=== PATIENT | male | born 1955 | race Caucasian/White ===

== ENCOUNTER 2017-01-07 01:41 | Day surgery (SDC) | payer MEDICARE ==
[~2017-01-07] VITALS: Ht 180.3 cm; Wt 95.5 kg
[2017-01-07] VITALS (16 sets, daily range): BP systolic 109–142; BP diastolic 40–77; PULSE 56–78; RESP 16–22; O2SAT 93–98
[~2017-01-07 01:41] MED LIST: AMLO10TA3 PO; ASPI-973 PO; BENZ200C44 PO; CELE200C PO; CYCL10TA9 PO; GUAI473S22 PO; HYDR-4003 PO; HYDR25TA4 PO; LISI10TA PO; NITR0.4T SL; NPR500T PO; OMEP40CA36 PO; PRAV40TA PO; TOP100 PO
[2017-01-07] MEDS ORDERED: 0.9% Sodium Chloride 1,000 ML ONE ×2 (08:41→11:09)
[2017-01-07] MEDS ORDERED: 0.9% Sodium Chloride 1,000 ML IV ONE (09:12)
--- NOTE | 2017-01-07 10:30 | NUR ---
[facility] ADMIT 61 YR OLD MALE ADMITTED TO [facility] FOR HEART CATH TODAY AT 0930. IVS STARTED, QUESTIONS ANSWERED, CONSENT IS SIGNED, AND MED REC COMPLETED. LABS FROM 01/03/17 ON CHART.
[2017-01-07] MEDS ORDERED: CLOP75TA3 PO (10:34)
[2017-01-07] MEDS ORDERED: Heparin 1,000 Units/500 mL NS Premix IV ONE ×2 (11:01→11:06)
[2017-01-07] MEDS ORDERED: Heparin 1,000 Unit/mL 10 mL Inj ONE (11:01)
[2017-01-07] MEDS ORDERED: Nitroglycerin 50,000 mcg/250 mL D5W Premix IV ONE (11:01)
[2017-01-07] MEDS ORDERED: fentaNYL-PF 50 mCg/mL 2 mL Inj ONE (11:02)
--- NOTE | 2017-01-07 12:06 | DI95 ---
[address] [address] INTERVENTIONAL CARDIAC CATHETERIZATION PATIENT: HEAVEN LEONARDO : 1955 MR#: [id number] ADMIT: 01/07/2017 JOB ID: [id number] PROCEDURE: 1. Selective right and left coronary angiography. 2. Left heart catheterization. 3. Percutaneous intervention on the right coronary artery. INDICATION: Abnormal stress test. Recurrent chest pain. PROCEDURAL DETAILS: The reader is referred to the procedure log for complete details. Briefly, it was done via right femoral approach using a [id number]-[id number] system. The coders are referred to the procedure log for further details. ANGIOGRAPHIC FINDINGS: 1. Left main short. 2. LAD. No critical disease. Mild diffuse disease of 20% or so is noted in almost the entirety of the LAD beginning from the mid segment all the way to the distal segment. 3. Circumflex is nondominant. In its mid to proximal segment it has about a 30% lesion. The obtuse marginal branches have mild disease of 10% to 20%. 4. Right coronary artery is dominant. In its proximal segment it has an eccentric 70% to 80% lesion. 5. Left heart catheterization revealed an elevated LVEDP of 18. Hand injection revealed normal wall motion. Ejection fraction is greater than 60%. There was no gradient on pullback. INTERVENTIONAL REPORT: We then proceeded ahead with an intervention of the right coronary artery. A Marilin guide was used. A Runthrough wire was used. This was stented with a 3.0 x 23 mm Xience drug-coated stent. Post stenting, there was residual in the midportion of the stent which was tackled with a 3.25 noncompliant balloon at high pressures. Final angiographic results were excellent. The patient is advised to stay on dual antiplatelet therapy for at least six months post procedure.
--- NOTE | 2017-01-07 16:35 | NUR ---
[facility] TRANSFER PT WAS RECEIVED FROM SUSTAINABLE LANDSCAPE ARCHITECT AT 1200. RIGHT GROIN WITH STAR CLOSE HAS REMAINED SOFT, NON TENDER, WITH SLIGHT OOZE NOTED. POST PCI EKG WAS DONE. MONITOR SHOWS SR/SB. PT COMPLETED BEDREST AND AMBULATED IN [place] AND VOIDED. DRSG WAS CHANGED TO RIGHT GROIN. RIGHT DP/PT PER DOPPLER. PT DENIES ANY PAIN AND IS TAKING PO FLUIDS AND TOLERATED MEAL WELL. PT AND HIS NURSING CARE WERE TRANSFERRED TO ROOM 2003 AT 1620. RN TO RN HAND OFF WAS DONE WITH HAYDEN Leigh RN AND REPORT WAS GIVEN.
[2017-01-07] MEDS ORDERED: HYDROcodone-APAP 5-325 mg Tablet PO PRN (16:55)
[2017-01-07] MEDS ORDERED: 0.9% Sodium Chloride 250 ML IV PRN (16:56)
[2017-01-07] MEDS ORDERED: Ondansetron 2 mg/mL 2 mL Inj IVPUSH PRN (17:00)
--- NOTE | 2017-01-07 18:21 | NUR ---
Transfer Patient arrived from [facility] around 1630. A&O, pleasant & cooperative, able to make needs known. ADAMS. Tele SR 75. Lungs diminished throughout. Bowel tones active. Pt ate dinner. Last BM prior to admit. Groin site dressing is clean, dry, and intact. Surrounding skin is soft, non-tender. No hematomas or drainage noted. Pedal pulses weak to palpation. No c/o pain or discomfort at this time. Pt has been ambulating independently around the unit. Saline locked on the L side X2, both flushing well.
[2017-01-07] MEDS: MeTOProlol XL 50 mg ER24 Tablet PO SCH (21:10)
[2017-01-08 03:14] VITALS: BP 124/69; PULSE 52; RESP 18; O2SAT 96
--- NOTE | 2017-01-08 03:37 | NUR ---
Tele/Groin A&O x 3, using call light appropriately, room air,Saline locked x 2, Groin site CDI, 2x2 and Bio-oclusive , no additional drainage, Tele: Roland to SR, anticipating DC Tuesday AM.
[2017-01-08 06:11] VITALS: PULSE 59
[2017-01-08] MEDS: MeTOProlol XL 50 mg ER24 Tablet PO SCH (07:59)
[2017-01-08 08:32] VITALS: BP 122/79; PULSE 61; RESP 16; O2SAT 95
[2017-01-08 09:20] VITALS: PULSE 58
--- NOTE | 2017-01-08 12:17 | NUR ---
Discharge Pt left at 1215 with girlfriend. 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 All discharge instructions gone over and questions answered. Follow up apt made and pt understood. New prescription sent with patient to be filled. New medication list gone over and understood changes made. Vitals stable, A&Ox3, tele and IV removed.
--- NOTE | 2017-01-08 13:26 | DIS ---
[address] [address] DISCHARGE SUMMARY PATIENT: HEAVEN LEONARDO : 1955 MR#: [id number] ADMIT: 01/07/2017 JOB ID: [id number] DIS: 01/08/2017 HOSPITAL COURSE: The patient is a 61-year-old gentleman who was hospitalized recently at [facility] with acute coronary syndrome. He was seen two days ago by Dr. Campos and brought in yesterday for coronary angiography. He was found to have significant disease in his right coronary artery and underwent stenting. The details of his angiogram and angioplasty are contained in Dr. Campos's note. This gentleman has been up ambulating and has felt well. He has had no recurrent anginal discomfort and his vital signs are normal. His right groin looks fine, without hematoma or ecchymosis, and good pedal pulses. I have reviewed all of his medications. He has all of his prescriptions at home, with the exception of a statin drug, and Dr. Campos has already prescribed Lipitor 40 mg a day. I reviewed these medications with the patient and answered his questions. He is ready to go home. He is to be scheduled to see Dr. Campos in the [place] office with us in about four weeks. He is scheduled for February 02, 2017.
[2017-04-08] MEDS ORDERED: LISI-571 PO (16:59)
[2017-04-08] MEDS ORDERED: METO50TA3 PO (16:59)
[2017-04-08] MEDS ORDERED: LIP40 PO (16:59)
== END 2017-01-08 12:15 | disposition home or self-care (01) ==
LOC: SOUO 01:41 → PCC 16:17 → SOUO 01-08 12:15
PROVIDERS: ATTEND Internal Medicine Cardiovascular Disease
DX: I25.10 Atherosclerotic heart disease of native coronary artery without angina pectoris (principal); F17.210 Nicotine dependence, cigarettes, uncomplicated; I10 Essential (primary) hypertension; Z79.82 Long term (current) use of aspirin
CPT/HCPCS: 36415; 80048; 93005; 93458; 99152; 99153; C1725; C1760; C1769; C1874; C1887; C9600; J1200; J1644; J2060; J2250; J3010; J7030; Q9967

== ENCOUNTER 2017-04-11 00:12 | Day surgery (SDC) | payer MEDICARE ==
[~2017-04-11 00:12] MED LIST changes: -BENZ200C44 PO; -CELE200C PO; +CLOP75TA3 PO; -GUAI473S22 PO; +LIP40 PO; +LISI-571 PO; -LISI10TA PO; +METO50TA3 PO; -NPR500T PO; -PRAV40TA PO; -TOP100 PO
[2017-04-11] MEDS ORDERED: 0.9% Sodium Chloride 1,000 ML IV ONE (08:15)
== END 2017-04-11 23:59 | disposition home or self-care (01) ==
LOC: SOUO 00:12
PROVIDERS: ATTEND Internal Medicine Cardiovascular Disease
DX: I73.9 Peripheral vascular disease, unspecified (principal)

== ENCOUNTER 2017-07-17 21:04 | Inpatient (IN) | payer MEDICARE ==
[~2017-07-17] VITALS: Ht 180.3 cm; Wt 93.2 kg
[2017-07-17 20:20] VITALS: BP 149/68; PULSE 65; RESP 20; O2SAT 98
[~2017-07-17 21:04] MED LIST changes: -CYCL10TA9 PO; -HYDR-4003 PO; -OMEP40CA36 PO; +PANT40TA3 PO
[2017-07-17 23:35] VITALS: PULSE 65
[2017-07-17] MEDS ORDERED: DILT120C52 PO (23:46)
[2017-07-17] MEDS ORDERED: APIX5TAB PO (23:46)
[2017-07-18] VITALS (16 sets, daily range): BP systolic 118–149; BP diastolic 54–78; PULSE 57–66; RESP 14–20; O2SAT 93–99
[2017-07-18] MEDS ORDERED: Polyethylene Glycol (PEG) 17 Gm Powder PO PRN (00:35)
[2017-07-18] MEDS ORDERED: Ondansetron 2 mg/mL 2 mL Inj IVPUSH PRN (00:35)
[2017-07-18] MEDS ORDERED: Atropine 1 mg/10 mL (Code) Syringe IVPUSH PRN (00:35)
[2017-07-18] MEDS ORDERED: Alum-Mag Hydrox-Simeth 30 mL Suspension PO PRN (00:35)
[2017-07-18] MEDS ORDERED: Senna-Docusate 8.6-50 mg Tablet PO PRN (00:35)
--- NOTE | 2017-07-18 01:17 | PCM.HPMED ---
Subjective Date of Service Jul 18, 2017 Primary Provider: Admitting Physician: Yael Vigil DO Primary Care Physician: Arden Negro MD Attending Physician: Yael Vigil DO Chief Complaint: Chest discomfort/palpitations History of Present Illness: Yoel Bae is a 62-year-old male with past medical history significant for CT status post RCA drug-eluting stent in December 2016, occluded SFA, hypertension, and tobacco use who presented to [facility] with palpitations and chest discomfort. He was subsequently transferred to our facility due to a reported elevated troponin and possible need for a stress test although in review of his records from [place] troponins seem to be within normal limits. As noted above he does have significant cardiac history and Dr. Campos did attempt percutaneous intervention of the totally occluded SFA but was unsuccessful in May and the patient has been referred to [facility]. The symptoms he experienced today began at approximately 1600 and came on gradually. Patient describes pain as a pressure located in his left chest that does not radiate, worsen with breathing, or palpation. He denied any associated diaphoresis, nausea, vomiting, lightheadedness, or dizziness with the episode. Pain significantly improved with nitroglycerin 2. On presentation to our facility the patient's pain is negligible but he still has his nitroglycerin patch in place. Of note patient was recently hospitalized at [place] approximately 7-10 days ago at which time he was placed on diltiazem and Eliqis. Patient denies history of atrial fibrillation. Initial vitals were temperature 37.5, pulse 65, respiratory rate 20, blood pressure 149/68, saturating 90% on room air. Labs at [place] were largely unremarkable. It does appear that he has some chronic kidney disease. Unclear if there is an acute component as I do not know his last baseline. As mentioned above troponin I 2 at [place] were 0.14 and 0.07. Repeat labs at our facility again show some chronic kidney disease along with an elevated troponin T of 0.056. Review of Systems: Comprehensive review of systems was conducted with the patient and found to be negative except as noted above in HPI. Allergies Coded Allergies: No Known Allergies (Unverified , 01/07/17) Home Medications Eliquis Cartia Amlodipine Clopidogrel Lisinopril Pantoprazole Atorvastatin Hydrochlorothiazide Metoprolol PMH CAD status post stent in December 2016 Vascular disease Hypertension GERD Bilateral rotator cuff injury Surgical History Left shoulder surgery 8 Right shoulder surgery 3 Right knee surgery Family History Father at age of 84 and was healthy to his knowledge. Mother at the age of 98 and was also healthy to his knowledge. Social History Hx Alcohol Use: No Hx Substance Use: No Hx Tobacco Use: Yes Smoking Status: Current Every Day Smoker (half pack per day) Living Arrangement: Alone Exam Vital Signs Vital Sign - Last Date Time Temp Pulse Resp B/P Pulse Ox O2 Delivery O2 Flow Rate FiO2 07/17/17 23:35 65 07/17/17 20:20 37.5 20 149/68 98 Room Air Exam General: No acute distress, well-developed, well-nourished, appropriately interactive HEENT: Normocephalic, atraumatic. External ears without defect. Pupils equal, round, and reactive to light and accommodation. Anicteric sclerae, moist conjunctivae, and no lid lag. Oropharynx free of erythema and cobble stoning with moist mucosa. Neck: Supple with full range of motion. No jugular venous distension. No bruits. No lymphadenopathy or thyromegaly. Cardiovascular: Regular rate and rhythm with no murmurs, rubs, or gallops appreciated Pulmonary: Clear to auscultation bilaterally with no crackles, wheezes, or rhonchi. Normal respiratory effort with no use of accessory muscles. Abdomen: Bowel tones present. Soft, nontender, nondistended. No hepatosplenomegaly or masses appreciated. Extremities: No clubbing, cyanosis, edema, or lymphadenopathy appreciated. Skin: Normal temperature, turgor, and texture; no rash, ulcers, or subcutaneous nodules appreciated. Neurological: Cranial nerves grossly intact. Normal muscle strength, tone, and bulk. Reflexes, coordination, and sensory function within normal limits. No known gait impairment. Psychiatric: Normal mood and affect. Alert and oriented to person, place, and time. Lab and Diagnostics Labs CBC Test 07/18/17 00:54 White Blood Count 8.6th/mm3 (3.8-10.1) Red Blood Count 4.07mil/mm3 (4.40-5.80) Hemoglobin 13.0g/dL (13.8-17.2) Hematocrit 37.7% (41.0-50.0) Mean Corpuscular Volume 92.6fL (81-100) Mean Corpuscular Hemoglobin 31.9pg (27.0-35.0) Mean Corpuscular Hemoglobin Concent 34.5% (32.0-37.0) Red Cell Distribution Width 13.7% (12.3-15.4) Platelet Count 186bil/L (150-400) Neutrophils (%) (Auto) 50.7% (40-74) Lymphocytes (%) (Auto) 35.6% (14-46) Monocytes (%) (Auto) 10.7% (4-12) Eosinophils (%) (Auto) 2.7% (0-5) Basophils (%) (Auto) 0.1% (0-3) CMP Test 07/18/17 00:54 07/18/17 01:09 Sodium Level 140mEq/L Potassium Level 3.7mEq/L Chloride Level 100mEq/L Carbon Dioxide Level 24mmol/L Blood Urea Nitrogen 37mg/dL Creatinine 1.43mg/dL Estimat Glomerular Filtration Rate 53mL/min Glucose Level 105mg/dL Calcium Level 8.8mg/dL Magnesium Level 1.8mg/dL Total Bilirubin 0.2mg/dL Aspartate Amino Transf (AST/SGOT) 24U/L Alanine Aminotransferase (ALT/SGPT) 37U/L Alkaline Phosphatase 69U/L Total Creatine Kinase 100U/L Creatine Kinase MB 1.6ng/mL Creatine Kinase MB % % Troponin T 0.056ug/L Total Protein 6.7g/dL Albumin 3.9g/dL Thyroid Stimulating Hormone (TSH) 2.010uIU/mL Hold Cornejo Top Tube Received Cardiac Echo Impressions Echocardiogram Report Study Date: 02/18/2017 Interpretation Summary Left ventricular wall thickness is at the upper limits of normal. Proximal septal thickening is noted. The ejection fraction is estimated to be 60-65%. There is systolic anterior motion of the mitral valve. There is no significant valvular heart disease. Electronically signed by: Saw Campos on Reading Physician:02/21/2017 08:49 AM Assessment & Plan Yoel Bae is a 62-year-old male with past medical history significant for CT status post RCA drug-eluting stent in December 2016, occluded SFA, hypertension, and tobacco use who presented to [facility] with palpitations and chest discomfort. He was subsequently transferred to our facility due to a reported elevated troponin and possible need for a stress test although in review of his records from [place] troponins seem to be within normal limits. NSTEMI, present on admission, active. - No new ECG findings. Old inferior infarct. - Initial troponin I at [place] 0.14 decreased to 0.07. Troponin T on presentation to [facility] 0.056. Trending troponins 3. - Lipid panel pending. - Supplemental oxygen as needed. - Aspirin 81 mg given at [facility]. - Clopidogrel 75 mg daily. - Sublingual nitroglycerin and morphine as needed. - Beta Bean given at [facility]. - Lisinopril 2.5 mg given and continued daily. - Atorvastatin 40 mg daily. - Heparin drip initiated. - Cardiology consult in am, am team to contact Coronary artery disease status post RCA drug-eluting stent placement in December 2016, present on admission, chronic. - On dual anti-platelet therapy with Clopidogrel and aspirin until last week when [place] switched aspirin to Eliquis. - Clarification needed on appropriate medication regimen. 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 - Continue atorvastatin 40 mg daily. Occluded SFA, present on admission, chronic. - Dr. Campos was unable to stent percutaneously. Referral to [facility]. - Posterior tibialis and dorsalis pedis 2/4 bilaterally in Hypertension, present on admission, chronic. - Home regimen includes: Amlodipine 10 mg daily Lisinopril 5 mg daily Metoprolol tartrate 25 mg BID Possible atrial fibrillation, patient on diltiazem and makes mention of palpitations but is not sure of a diagnosis of atrial fibrillation. - EKG and telemetry reveal NSR. - Home regimen includes diltiazem ER 120 mg daily which has been continued. - Continue to monitor and obtain outside records. PRN Medications - Acetaminophen as needed for mild pain/fever/headache - Bowel regimen as needed - Antiemetic as needed Patient is admitted under inpatient status with expected length of stay greater than 2 midnights due to severity of presenting symptoms, risk of adverse event, and complexity of treatment plan. Pain Evaluation: Adequate Pain Control GI Prophylaxis: Not indicated VTE Prophylaxis: Other (Heparin GTT) VTE Mechanical Devices: Intermittant Pneumatic CD Resuscitation Status: CPR: Attempt Resuscitation Attending Statement The patient was seen and examined together with house staff on 07/17/2017 and I agree with the history, exam and plan as outlined in the note above. ANDRES ROJAS DO Jul 18, 2017 01:17 Yael Vigil DO Jul 18, 2017 04:15
[2017-07-18 01:18] LABS: INR 0.88 ratio
[2017-07-18 01:21] LABS: BASOPHILS % (AUTO) 0.1 % (0-3); EOSINOPHILS % (AUTO) 2.7 % (0-5); MONOCYTES % (AUTO) 10.7 % (4-12); Mean Corpuscular Hemoglobin 31.9 pg (27.0-35.0); Mean Corpuscular Volume 92.6 fL (81-100); NEUTROPHILS % (AUTO) 50.7 % (40-74); Platelet Count 186 bil/L (150-400)
[2017-07-18 01:46] LABS: Magnesium 1.8 mg/dL (1.6-2.6)
[2017-07-18 01:47] LABS: Creatine Kinase 100 U/L (21-232)
[2017-07-18] MEDS ORDERED: Heparin 5,000 Unit/mL Inj IVPUSH PRN (02:05)
[2017-07-18] MEDS ORDERED: Heparin 25K Unit/500mL 0.45 NS 25,000 UNIT in IV Premix 1 EACH IV SCH (02:05)
[2017-07-18] MEDS ORDERED: Heparin 5,000 Unit/mL Inj SUBQ ONE (02:40)
[2017-07-18] MEDS: 0.9% Sodium Chloride 1,000 ML IV SCH ×4 (03:10→20:25)
[2017-07-18 05:19] LABS: APPEARANCE,URINE CLEAR (CLEAR,HAZY); COLOR,URINE YELLOW (YELLOW); OCCULT BLOOD,URINE NEGATIVE (NEGATIVE); UROBILINOGEN,URINE NORMAL (NORMAL)
--- NOTE | 2017-07-18 07:34 | NUR ---
Admit to floor Pt. received from [facility] ED, via EMS. Admitted to Room 2024, self transfer from [facility]. A/O, denies pain or discomfort. MD notified of arrival, orders received. Lab values drawn, and Heparin started. Patient NPO, d/c NTG paste, and on caffeine restrictions for pre-diagnostic prep. Heparin drip started, serial labs ordered. VSS. Tele: SR rate in 60-70'. Report given to on coming RN.
[2017-07-18] MEDS ORDERED: Diltiazem CD 120 mg ER24 Capsule PO SCH ×2 (08:30→21:00)
[2017-07-18] MEDS: Sodium Chloride LOK Flush 10 mL Syringe IVFLUSH SCH ×3 (08:44→20:25)
[2017-07-18] MEDS: Pantoprazole 40 mg ER24 Tablet PO SCH (08:44)
--- NOTE | 2017-07-18 09:09 | NUR ---
Social Work: Initial Assessment D: Per EMR review, pt is a 62 year old male admitted for chest pain. Patient is AARP Medicare Complete HMO, patient is applying for DSHS and has no LTC or VA benefits. PCP is Arden Negro MD. Advanced Directives not complete- Information provided. Readmit score not entered at this time. CRAB STEAMER met with the patient at bedside. Social work/dcp role explained, contact information and discharge planning checklist provided. See initial assessment. Patient lives in [place], alone, in a mobile home with 3 steps to enter. The patient uses a cane for mobility, is I with all ADLs and self-care and continues to drive. No history of HH or Skilled rehab. Patient anticipates discharge home when ready but is receptive to discharge planning if needs arise. Patient states that his s/o will likely transport. He does not have her contact information readily available at this time. Patient has been ambulating to the bathroom during admission. A: Pt who is I at baseline P: Evolving; Patient anticipates discharge home. CRAB STEAMER to continue to follow to assess for discharge needs and coordinate discharge planning as ordered by physician. MARISELA Mahmood Addendum: 07/18/17 at 0914 by CRISTINA CHEN Amended: Links added.
[2017-07-18 09:34] LABS: Creatine Kinase 132 U/L (21-232); TROPONIN T 0.027 ug/L (0.0-0.011)
--- NOTE | 2017-07-18 10:14 | NUR ---
Chest pain Pt had been walking in hallway. Stated after he got back into bed he started to experience chest pain 04/09. MD present. Pt BP 135/78. 0.4mg SL Nitroglycerin administered and EKG ordered. Will continue to monitor.
[2017-07-18] MEDS ORDERED: 0.9% Sodium Chloride 1,000 ML IV ONE (13:30)
[2017-07-18] MEDS ORDERED: Heparin 1,000 Units/500 mL NS Premix IV ONE (14:57)
[2017-07-18] MEDS ORDERED: Heparin 10,000 Unit/1,000 mL NS Premix IV ONE (14:57)
[2017-07-18] MEDS ORDERED: fentaNYL-PF 50 mCg/mL 2 mL Inj ONE ×2 (14:58→15:11)
[2017-07-18] MEDS ORDERED: Nitroglycerin 50,000 mcg/250 mL D5W Premix IV ONE (15:10)
--- NOTE | 2017-07-18 15:13 | NUR ---
Pt off floor to laborer. Premedicated with 324mg chewable aspirin. Report to Kirt MILLAN in [facility].
--- NOTE | 2017-07-18 16:28 | DRSVH ---
PROCEDURE: RADIOPHARMACEUTICAL INJECTION ONLY RADIOPHARMACEUTICAL: 9.5 mCi 99m-Tc sestamibi IV. INDICATIONS: CHEST PAIN. COMPARISON: None. After radiopharmaceutical injection, the study was canceled by the referring physician. No images wer e obtained. Dictated by: Soraida Jeter M.D. on 07/18/2017 at 16:24 Approved by: Soraida Jeter M.D. on 07/18/2017 at 16:26
--- NOTE | 2017-07-18 17:31 | PCM.PROC ---
Procedure Note Date of Service: Jul 18, 2017 Provider and Electric Power Line Examiner: Dr. Joseph Faith Procedure Details: Procedure: Osteopathic Manipulative Treatment Subjective: Patient is a 62-year-old male who is currently complaining of right gluteal and right lower extremity pain. The patient states that the pain is worse with walking and also stretching. The patient states that lying still in bed seems to help improve the pain. The patient describes the pain as a 8 out of 10. Risks and benefits of OMT were explained to the patient and verbal consent obtained. Osteopathic Structural Exam: Lumbars: L2-L4 NRrSl Pelvis: Right anterior innominate Sacrum: Right SI joint compression Upper extremities: Right latissimus dorsi hypertonicity Lower extremities: Right piriformis tender point, right psoas tender point, right abductor hypertonicity Patient responded well to treatment. And stated that his pain had significantly improved and he was able to walk with less pain. Osteopathic treatment modalities used: Myofascial release, Muscle Energy, Cranial, BLT, and soft tissue technique Melba Patel DO Jul 18, 2017 17:30
--- NOTE | 2017-07-18 17:57 | PCM.PNMED ---
Subjective Date of Service Jul 18, 2017 Subjective Patient had an episode of substernal chest pain radiating to his jaw today when he returned to bed after a walk in the [place]. Patient received 2 doses of sublingual nitroglycerin which did not resolve the pain. He then received 1 g of IV morphine and the pain was resolved. EKG did not show any acute ST changes. Exam Vital Signs Vital Sign - Last Date Time Temp Pulse Resp B/P Pulse Ox O2 Delivery O2 Flow Rate FiO2 07/18/17 17:30 59 14 146/54 94 Room Air 07/18/17 12:00 36.5 Intake and Output 07/17/17 07/17/17 07/18/17 Cumulative From/Thru 15:00 23:00 07:00 07/17/17 20:20 - 07/18/17 06:05 Intake Total 0 ml 0 ml Output Total 1050 ml 1050 ml Balance -1050 ml -1050 ml Intake Oral 0 ml 0 ml Output Urine Total 1050 ml 1050 ml # Voids 2 2 Exam General: No acute distress, well-developed, well-nourished, appropriately interactive HEENT: Normocephalic, atraumatic. External ears without defect. Pupils equal, round, and reactive to light and accommodation. Anicteric sclerae, moist conjunctivae, and no lid lag. Oropharynx free of erythema and cobble stoning with moist mucosa. Neck: Supple with full range of motion. No jugular venous distension. No bruits. No lymphadenopathy or thyromegaly. Cardiovascular: Regular rate and rhythm with II/ systolic murmur, no rubs, or gallops appreciated Pulmonary: Clear to auscultation bilaterally with no crackles, wheezes, or rhonchi. Normal respiratory effort with no use of accessory muscles. Abdomen: Bowel tones present. Soft, nontender, nondistended. No hepatosplenomegaly or masses appreciated. Extremities: Tenderness to palpation of right hip and gluteal area. No clubbing , cyanosis, edema, or lymphadenopathy appreciated. Skin: Normal temperature, turgor, and texture; no rash, ulcers, or subcutaneous nodules appreciated. Neurological: Cranial nerves grossly intact. Normal muscle strength, tone, and bulk. Reflexes, coordination, and sensory function within normal limits. No known gait impairment. Psychiatric: Normal mood and affect. Alert and oriented to person, place, and time. IVs and Medications Medications Reviewed: Medications were reviewed in detail Lab and Diagnostics Troponin down to .024 from 0.056 on admission Result Diagram: 07/18/17 0054 07/18/17 0054 12-lead ECG EKG performed 07/18/2017 during the episode of chest pain showed a normal sinus rhythm with a rate of [address] changes. Cardiac Echo Impressions Echocardiogram Report Study Date: 02/18/2017 Interpretation Summary Left ventricular wall thickness is at the upper limits of normal. Proximal septal thickening is noted. The ejection fraction is estimated to be 60-65%. There is systolic anterior motion of the mitral valve. There is no significant valvular heart disease. Electronically signed by: Saw Campos on Reading Physician:02/21/2017 08:49 AM Additional Diagnostics Cardiac cath performed 07/18/2017 Per my conversation with Dr. Ferguson: No culprit lesions were identified that would explain the patient's chest pain. Previous stent placed in December remains patent. Dr. Ferguson recommend stopping heparin and ordering an echo for tomorrow. Assessment & Plan Yoel Bae is a 62-year-old male with past medical history significant for STEMI status post RCA drug-eluting stent in December 2016, occluded SFA, hypertension, and tobacco use who presented to [facility] with palpitations and chest discomfort. He was subsequently transferred to our facility due to elevated troponin. NSTEMI, present on admission, stable - No new ECG findings. Old inferior infarct. - Troponin T on presentation to [facility] 0.056. Now 0.024. - Lipid panel pending. - Supplemental oxygen as needed. - Clopidogrel 75 mg daily. - Sublingual nitroglycerin and morphine as needed. - Beta Bean given at [place]. - Lisinopril 2.5 mg given and continued daily. - Atorvastatin 40 mg daily - Cath 07/18/2017 showed no focal stenoses - Discontinued heparin drip - Echo ordered for a.m. Coronary artery disease status post RCA drug-eluting stent placement in December 2016, present on admission, chronic. - Stent is still patent as identified by cath 07/18/2017 - On dual anti-platelet therapy with Clopidogrel Eliquis. 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 - Continue atorvastatin 40 mg daily. Occluded SFA, present on admission, chronic. - Dr. Campos was unable to stent percutaneously. Referral to [facility]. - Posterior tibialis and dorsalis pedis 2/4 bilaterally Hypertension, present on admission, chronic. - Home regimen includes: Amlodipine 10 mg daily Lisinopril 5 mg daily Metoprolol tartrate 25 mg BID Possible atrial fibrillation, patient on diltiazem and makes mention of palpitations but is not sure of a diagnosis of atrial fibrillation. - EKG and telemetry reveal NSR. - Home regimen includes diltiazem ER 120 mg daily which has been continued. - Continue to monitor and obtain outside records. PRN Medications - Acetaminophen as needed for mild pain/fever/headache - Bowel regimen as needed - Antiemetic as needed Disposition: Patient is currently doing well but still having chest pain with exertion. Patient's cardiac cath went well today and the patient will be restarted on Eliquis and plavix and follow up in the morning. The patient will have an ECHO in the morning as recommended by Dr. Ferguson and if this is negative the patient will be able to be discharged home tomorrow. GI Prophylaxis: Not indicated VTE Prophylaxis: Other (Heparin GTT) VTE Mechanical Devices: Intermittant Pneumatic CD Resuscitation Status: CPR: Attempt Resuscitation Attending Statement The patient was seen and examined together with Dr. Faith on 07/18/17 and I have added additional information to the note above. Gonzales Faith DO Jul 18, 2017 17:57 Melba Patel DO Jul 19, 2017 13:53
--- NOTE | 2017-07-18 18:25 | NUR ---
Pt transferred to [facility] room 2024, VSS, Rt groin site CDI with no bleeding/hematoma noted. Report and pt handoff given to Kandice MILLAN.
--- NOTE | 2017-07-18 18:46 | CS94 ---
[address] [address] DIAGNOSTIC CARDIAC CATHETERIZATION PATIENT: HEAVEN LEONARDO : 1955 MR#: [id number] ADMIT: 07/17/2017 JOB ID: [id number] SERVICE DATE: 07/18/2017 PROCEDURE NOTE -- CARDIAC CATHETERIZATION LABORATORY: DATE OF PROCEDURE: Tuesday, July 18, 2017. YOUTH DEVELOPMENT PROFESSIONAL: Anthony Ferguson MD. PROCEDURES:: 1. Coronary angiogram--urgent. 2. Left heart catheterization (LHC)--pressure measurement. CLINICAL DETAILS:: This 62-year-old, man presents to the cardiac catheterization laboratory for coronary angiogram when he was transferred here after presenting to an outside emergency department with chest pain. His cardiac history dates to December 2016 when he presented with chest pressure. A stress test was said to be abnormal. He had early catheterization from the outpatient setting. A 70% to 80% proximal RCA lesion was treated with a Xience 3.0 x 23 mm TIFFANY post dilated to 3.25 mm. He did well in the interim until a week ago. At that time, he presented with tachy palpitations and chest discomfort. He reports he was found to be in atrial fibrillation and then started on Eliquis and diltiazem. He has continued to have chest discomfort, some of which is exertional; he had an episode of chest discomfort while ambulating in the hallway this morning. CAD risk factors include ongoing cigarette smoking, hypertension, hyperlipidemia. He has some degree of renal insufficiency with creatinine 1.1 in December 2016; and 1.8 in May 2017; and currently 1.4. He also has peripheral vascular disease with bilateral SFA occlusion and severe bilateral calf claudication at less than one-half block. Percutaneous attempt to open the left SFA was not successful in May 2017; and consideration of surgical therapy is pending. ECG is abnormal with inferolateral T-wave inversions and probable LVH (large R in aVL). No inferior Q-waves. Troponin is elevated, 0.02 but flat on serial measurements. Echocardiogram in January 2017 showed intact LV function with the report of NICOLE. I evaluated him prior to the procedure and discussed the findings, impressions, and management considerations with him. We discussed the recommendation for urgent coronary angiography for definitive diagnosis; and to guide treatment decisions, including medical therapy, PCI; or coronary bypass surgery if needed. We discussed the procedure including possible risks and complications. We discussed bleeding, infection, blood clot; as well as injury to nerve, artery, vein or kidney; and also arrhythmia, drug reaction; or others. We discussed treatment as needed including surgery, pacemaker, transfusion. We discussed more serious complications that are possible including stroke, heart attack, cardiac arrest, and emergency surgery including transfer for coronary bypass surgery. We discussed stents including the necessity for long-term mandatory dual antiplatelet therapy; and increased risks related to his multiple anticoagulants; and the possible need for further interventional procedures with stents. After questions and discussion, he signed informed consent to proceed. He was brought to the catheterization laboratory n.p.o. where he was prepped sterilely and draped. CORONARY ANGIOGRAM:: Arterial access was obtained without difficulty in the right common femoral artery using fluoroscopic localization over the femoral head; with local lidocaine anesthesia; and modified Seldinger technique to insert a 10 cm, 6-Faroese side-arm sheath. Catheters were advanced and exchanged over a 0.035 inch J tipped guidewire. Coronary angiography was accomplished using a 6-Faroese JL-4 diagnostic catheter for the left coronary artery; and using a 6-Faroese JR-4 guide catheter for the right coronary artery. LHC: A 6-Faroese pigtail catheter was advanced across the aortic valve into the left ventricle to measure LV pressures and pullback; and no LV-gram was done. Procedure without difficulty. Patient tolerated procedure well. No complications. A side-arm sheath angiogram shows adequate access in the RFA; but extensive vascular calcification and diffuse mild to moderate narrowing. A closure device was deferred in favor of manual closure. The patient was transferred in stable condition from the catheterization laboratory to the [facility] unit for ongoing care including by the primary hospitalist team. I discussed the procedure, findings, and management considerations with the patient (no family present); and with the hospitalist team. FINDINGS: 1. LMCA: Intact. The left main coronary artery is short. 2. LAD: The LAD is a medium to large-size transapical vessel with one large high diagonal and a 2nd moderate-sized proximal diagonal. There is diffuse atherosclerotic plaquing but no angiographically significant LAD lesions. 3. LCX: Intact. The left circumflex coronary artery is a large vessel with one dominant branching OM from the mid LCX. There is mild to moderate diffuse atherosclerotic plaquing. Maximum 50% in the proximal OM. 4. RCA: Dominant. The RCA is a moderate to large-sized vessel with moderate-sized RPDA and RPLV. The stent is patent in the proximal RCA including mild in-stent narrowing. There is diffuse mild to moderate atherosclerotic plaquing in the RCA. There is one large RV branch with an ostial lesion. 5. LHC: LVED 33 mmHg; and no systolic gradient on pullback across the aortic valve. CONCLUSIONS: 1. Coronary angiogram--patent proximal right coronary artery stent; and diffuse [id number] coronary atherosclerosis. 2. Elevated left ventricular end-diastolic. RECOMMENDATIONS: 1. Comment: There is no severe coronary lesion there would account for his current chest discomfort; or requiring revascularization. I considered FFR of RCA; but the diffuse plaquing is angiographically unimpressive. 2. Reassess anticoagulation regimen--if atrial fibrillation is documented and he requires Eliquis then consider ongoing Plavix without ASA. 3. Post catheterization hydration--continue precatheterization hydration regimen and monitor creatinine. 4. Postcatheterization monitoring for bleeding given increased risk due to anticoagulation. 5. Your plan and Cardiology followup as well to consider causes of his chest discomfort. Note a prior echo reported NICOLE; but the images do not appear to suggest ACM although there may be chordal NICOLE.
--- NOTE | 2017-07-18 20:54 | CONS ---
[address] [address] CONSULTATION REPORT PATIENT: HEAVEN LEONARDO : [birth year] MR#: [id number] ADMIT: 07/17/2017 JOB ID: [id number] CARDIOLOGY CONSULTATION NOTE--INITIAL INPATIENT EVALUATION: DATE OF EVALUATION: Tuesday, July 18, 2017. CONSULTING PHYSICIAN: Cardiology--Anthony Ferguson MD. PROBLEMS: 1. Chest Pain: a. Possible Acute Coronary Syndrome(ACS) b. Chest pain--onset of recurrent chest pain for one week including during atrial fibrillation; and during exertion; and recurrent with ambulation in the hospital. c. Elevated troponin (but downtrending on serial testing). d. ECG--Nonspecific with inferolateral T-wave inversions with possible LVH. 2. Coronary Artery Disease (CAD): a. PCI of Proximal RCA--December 2016; Xience 3.0 x 23 mm TIFFANY (post dilated to 3.25 mm). b. Single-vessel CAD--proximal RCA. 3. Atrial Fibrillation: a. Recent onset--documentation not available to us. b. CHADS score elevated (hypertension; vascular disease). CAD RISK FACTORS:: Cigarette smoking--ongoing 1/2 pack per day of cigarettes. No history of diabetes. History of treated hypertension. History of treated hyperlipidemia. No family history of premature coronary artery disease. OTHER PROBLEMS:: 1. Peripheral Vascular Disease(PVD)--Bilateral lower extremities. a. Bilateral Mid SFA occlusion; and Ostial LSFA occlusion. b. Bilateral severe calf claudication (less than 1/2 block; but no rest pain). c. TECHNICAL MARKETING ENGINEER of Left SFA--June 26, 2017; TECHNICAL MARKETING ENGINEER of Ostial Left SFA was not successful; and a surgical is consultation pending. 2. Chronic Renal Insufficiency. a. Baseline creatinine 1.1 in December 2016; then 1.8 in May 2017; and now 1.4. CHIEF COMPLAINT: Asked to see patient for catheterization after he was admitted with chest pain; and then a planned stress test was deferred because of recurrent chest discomfort with ambulation in the hallway. HISTORY OF PRESENT ILLNESS:: PRESENTATION: I am glad to meet this 62-year-old man who was admitted 18 hours ago in transfer from [facility] where he had presented with chest pain. The patient tells me he intially presented in December,,to [facility] with retrosternal chest pressure developing over several weeks, and it was progressive with exertion. He was evaluated, sent home, and then came back early for catheterization leading to PCI of proximal RCA at that time. His chest discomfort cleared. It did not recur despite fairly heavy activities including manhandling his 800-pound motorcycle. He had the first recurrence of chest discomfort five days ago with exertion. It was similar discomfort. It did not last longer than 10 minutes, and was relieved with rest. He presented to [facility] emergency department. Documentation is not available but I understand he was told he had "atrial fibrillation." Aspirin was stopped; Eliquis was begun along with diltiazem; and Plavix was continued. The chest discomfort at that time occurred with tachy palpitations, not with exertion. In the past day, however, he has had again chest discomfort, but this time with only modest exertion. It was relieved by nitroglycerin in the Emergency Department. He has not had resting, or severe, or prolonged episodes. The chest discomfort radiates to his neck and somewhat to his back but not associated with nausea, diaphoresis, or dyspnea. In the hospital, he has been treated with IV heparin. He had one recurrent episode of chest discomfort this morning ambulating just a short distance in the hallway which raised concern for the acuity of his syndrome; and a planned Myocardial Perfusion Scan was cancelled. CARDIAC HISTORY:: Regarding CHF, he has no chronic dyspnea or other symptoms of heart failure including nocturnal dyspnea or edema. Regarding arrhythmia, he has not had known arrhythmia until recently; and again until recently has not had arrhythmic symptoms including tachy palpitation, presyncope or syncope. Regarding other possible underlying vascular disease, he reports no history of CVA or current symptoms of TIA. Claudication is his main ongoing problem, as noted above. Regarding dual antiplatelet therapy, he reports no current bleeding symptoms; no anticipated upcoming surgery; and that he is reliable to take mandatory medicines as needed. ALLERGIES: No known drug allergies. I elicit no history of allergy to medical contrast, seafood, fish, iodine, or shellfish. MEDICATIONS: Home medications include: 1. Apixaban 5 mg p.o. b.i.d. for five days. Last dose was 24 hours ago. 2. Plavix 75 mg p.o. daily-he reports he "never" misses a dose. 3. Amlodipine 10 mg daily. 4. Lipitor 40 mg daily. 5. Diltiazem ER 120 mg daily--started five days ago. 6. Lisinopril 5 mg daily. 7. Metoprolol tartrate 25 mg p.o. b.i.d. 8. NTG SL 0.4 mg SL p.r.n. 9. Hydrochlorothiazide 25 mg daily[address] 10. Pantop[address] 40 mg p.o. daily. PAST MEDICAL HISTORY: 1. Multiple bilateral shoulder surgeries-last was his 5th left shoulder surgery done some months ago. Now healing. 2. Multiple bilateral knee surgeries without knee replacements. 3. GERD--He reports no symptoms at all when taking his pantoprazole regularly. REVIEW OF SYSTEMS:: I questioned him about a 13 point review of systems which is unremarkable, noncontributory or negative except as noted including: No history of thyroid disorder. He reports no history of lung disorder or known COPD despite his smoking; and he does not have symptoms of chronic bronchitis or chronic dyspnea. GI--No history of hepatitis, ulcer, or jaundice. --He is not aware of a history of chronic renal insufficiency; and no prostate symptoms. PERSONAL AND SOCIAL HISTORY: Alcohol--He tells me he does not drink at all. 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 Family--He lives by himself and is independent. FAMILY HISTORY: Not further contributory. PHYSICAL EXAMINATION: GENERAL APPEARANCE: Very pleasant, middle-aged man in no distress. VITAL SIGNS: Blood pressure 129/70 with heart rate 66, regular. Respiratory rate 18 and unlabored with SpO2 99% on room air. Afebrile. NEUROLOGIC AND MENTAL STATUS: No overt focal neurologic defect noted. He is alert, oriented, appropriate and conversant. HEENT: PERRL. Conjunctivae pink. Sclerae not icteric. Mouth and mucous membranes intact. NECK: Carotid upstroke intact bilaterally without bruit. Jugular venous pressure unremarkable. No palpable thyromegaly. No palpable cervical lymphadenopathy. LUNGS: Clear to auscultation bilaterally with scattered wheezes on forced expiration which is borderline prolonged. CARDIAC: No chest wall tenderness. Cardiac examination notable for regular rhythm, loud S4, and there is not a loud murmur heard. ABDOMEN: Obese but otherwise unremarkable examination without tenderness, mass, hepatosplenomegaly, or bruit of abdominal aortic aneurysm. EXTREMITIES: Intact without edema. There is a palpable pulse at the right dorsalis pedis and posterior tibial but no palpable pulses at the left foot. The bilateral femoral artery pulses are intact without bruit. DIAGNOSTIC STUDIES: ELECTROCARDIOGRAM: The ECG shows sinus rhythm with nondiagnostic anterior Q-waves that may be related to LVH. LVH is present by [place] criteria including R-wave in aVL. There are inferolateral T-wave inversions which are nonspecific, which may be related to LVH or ischemia. Not changed from prior ECGs. CHEST X-RAY: No chest x-ray available. LABORATORY: CBC includes WBC 8600 with hemoglobin 13.0, hematocrit 37.7, normal indices and platelet count 186,000. INR 0.88. Chemistries include potassium 3.7, BUN 37, creatinine 1.43, with estimated GFR 53 and glucose 105. Magnesium 1.8 and LFT unremarkable. Cardiac markers include serial troponin elevated but flat or down trending, 0.056, then 0.027, then 0.024, with CK total not elevated at 132. TSH 2.010. CORONARY ANGIOGRAM: I reviewed his December 2016 study, at which time, the left coronary artery was unremarkable; and there was a 70% to 80% proximal tubular RCA lesion which was treated with a stent with good angiographic result. Echocardiogram: I reviewed the report of an Echocardiogram of February 18, 2017, which showed borderline concentric LVH with proximal septal thickening. Ejection fraction estimated 60% to 65% and NICOLE of the mitral valve. I reviewed the images which show no leaflet NICOLE; but there may be some chordal NICOLE; and not increased LVOT velocities at that time. ASSESSMENT: I discussed the findings, impressions, and management considerations with him (no family present); and with the hospitalist team (Dr. Patel, and Dr. Faith) including: Acute coronary syndrome with NSTEMI: He has chest pain that is similar to his ischemic chest pain previously. It raised the question of acute coronary syndrome in the setting of his known CAD. Note that some of the chest discomfort was associated with tachy palpitations that led to diagnosis of atrial fibrillation; and may therefore be a bit less specific for active CAD; but certainly could indicate an underlying lesion that became symptomatic with atrial fibrillation. He has also had some exertional symptoms. The overall impression is high likelihood of a coronary lesion. He also has elevated troponin, although it may be a bit less specific since it has been downtrending. This raises suspicion that this may be residual from his ED admission with atrial fibrillation a week ago. Agree with your plan to defer stress test given his chest discomfort with little exertion. Agree with your plan for catheterization. Consideration of catheterization is complicated by his modest renal insufficiency; and his multiple anticoagulants. I discussed the recommendation with him to proceed to urgent coronary angiogram today for definitive diagnosis and to guide treatment decisions, including medical therapy; PCI; or coronary bypass if needed. We discussed the procedure including possible risks and complications (see details in catheterization note) ; and after discussion and questions, he signed informed consent to proceed. RECOMMENDATIONS: 1. Coronary angiogram--urgent today. 2. Echocardiogram--a rule out HCM (doubtful); and consider provocation for LVOT obstruction at that time. 3. OMT--Optimal guideline directed medical therapy for his underlying CAD, atrial fibrillation and CAD risk factors. I discussed the critical importance of smoking cessation with him. 4. Peripheral Vascular Disease: He has been trying to push forward evaluation of his claudication; and could benefit from efforts to expedite this. 5. Chronic Renal Insufficiency--Plan hydration before and after catheterization. (He began hydration over 12 hours ago.) KIT
[2017-07-19] MEDS: 0.9% Sodium Chloride 1,000 ML IV SCH ×3 (01:34→14:04)
[2017-07-19 02:48] VITALS: BP 131/71; PULSE 57; RESP 18; O2SAT 96
[2017-07-19 04:21] LABS: BASOPHILS % (AUTO) 0.1 % (0-3); MONOCYTES % (AUTO) 12.1 % (4-12); Mean Corpuscular Hemoglobin 31.6 pg (27.0-35.0); Mean Corpuscular Volume 92.5 fL (81-100); NEUTROPHILS % (AUTO) 65.8 % (40-74); Platelet Count 168 bil/L (150-400)
--- NOTE | 2017-07-19 05:29 | NUR ---
Care note Assumed care ~1930, pt. a/o, denies pain or discomfort. Bedrest until 0 s/p heart cath. Pt. up to bedside, with groin pressure instructions. Groin site c/d/i, soft non-tender, no hematoma with ambulation. Rested for extended period, up to BR independently. VSS, Tele: SR in 57-70's Addendum: 07/19/17 at 0626 by ANAMARIA SCHMITZ RN [id number] - pt. up oob and walking in diop. Denies SOB, chestpain or discomfort.
[2017-07-19 07:36] VITALS: BP 145/75; PULSE 61; RESP 18; O2SAT 97
[2017-07-19] MEDS: Pantoprazole 40 mg ER24 Tablet PO SCH (07:42)
[2017-07-19] MEDS: Sodium Chloride LOK Flush 10 mL Syringe IVFLUSH SCH (08:30)
[2017-07-19] MEDS ORDERED: Benzocaine-Menthol Lozenge 2/Pkg PO PRN (10:40)
[2017-07-19 11:23] VITALS: PULSE 64
[2017-07-19 12:17] VITALS: BP 134/68; PULSE 64; RESP 16; O2SAT 97
--- NOTE | 2017-07-19 13:20 | DRSVH ---
[facility] [address] [place] [address] Echocardiogram Report Name: HEAVEN LEONARDO RStudy Date: Height: 71 in Hospital Exam Location: [facility] Weight: 206 lb Gender: Other BSA: 2.1 m2 : 1955 Age: 62 yrs BP: 145/75 mmHg Reason For Study: ANGINA, UNSTABLE Ordering Physician: Performed By: Dieter Bardales Referring Physician: KENY MORA Interpretation Summary A contrast injection of Definity was performed to improve assessment of LV function. The study quality was technically difficult. The ejection fraction is estimated to be 65-70%. Previously reported NICOLE is not seen. There is no significant valvular heart disease. Procedure: A two-dimensional transthoracic echocardiogram with color flow and Doppler was performed. The study quality was technically difficult. A contrast injection of Definity was performed to improve assessment of LV function. Comparison is made with the echocardiogram of 02/18/17. The patient was in normal sinus rhythm during the exam. Left Ventricle: The left ventricle is normal in size. There is normal left ventricular wall thickness. The ejection fraction is estimated to be 65-70%. Left ventricular wall motion is normal. Right Ventricle: The right ventricle is normal in size, thickness and function. Atria: The left atrium grossly appears normal in size. The right atrium grossly appears normal in size. The interatrial septum is intact with no evidence for an atrial septal defect. Mitral Valve: The mitral valve is normal. There is trace mitral regurgitation. Aortic Valve: The aortic valve is grossly normal. No aortic regurgitation is present. Tricuspid Valve: The tricuspid valve is not well visualized, but is grossly normal. Pulmonary artery pressures cannot be estimated because of the lack of a measurable TR jet velocity. Pulmonic Valve: The pulmonic valve is not well visualized. Great Vessels: The aortic root is normal size. The dimensions of the ascending aorta are normal. The pulmonary artery is not well visualized, but is probably normal size. The IVC is of normal diameter and collapses greater than 50% with a sniff. This suggests a low right atrial pressure of 3 mm Hg. Pericardium/ Pleura There is no pericardial effusion. There is no pleural effusion. MMode/2D Measurements & Calculations LVIDd: 4.4 cm LVIDs: 3.0 cm RA area: 17.6 cm2 FS: 32.5 % IVSd: 0.86 cm LVPWd: 1.2 cm LVOT diam: 2.0 cm LV mike. diameter/BSA (cm/m^2): 2.0 AoV Openin.8 cm Ao root diam: 3.3 cm asc Aorta Diam: 2.7 cm Ao Arch Diam (Prox Trans): 3.0 cm LV sys. diameter/BSA (cm/m^2): 1.4 RVD1 (basal): 3.3 cm TAPSE: 2.3 cm Doppler Measurements & Calculations MV E max leon: 95.2 cm/sec MV E/A: 1.2 MV A max leon: 79.0 cm/sec Med Peak E' Leon: 7.6 cm/sec E/E' med: 12.6 Lat Peak E' Leon: 12.5 cm/sec E/E' lat: 7.6 E/e' average: 10.1 PA V2 max: 126.2 cm/sec MV dec time: 0.21 sec PA mean P.5 mmHg PA V2 mean: 87.6 cm/sec PA pr(Accel): 17.4 mmHg Electronically signed by: Saw Campos on Reading Physician:07/19/2017 01:20 PM
--- NOTE | 2017-07-19 13:33 | PCM.DC.MED ---
Discharge Summary Date of Service Jul 19, 2017 Dates of Hospitalization Date of Hospital Admission Jul 17, 2017 at 23:07 Date of Discharge: Jul 19, 2017 Providers: Admitting Physician: Yael Vigil DO Primary Care Physician: Arden Negro MD Attending Physician: Melba Patel DO Diagnosis at Time of Discharge Diagnosis at Time of Discharge Non-cardiac chest pain Procedures ECG 12 Lead EKG performed 07/18/2017 during the episode of chest pain showed a normal sinus rhythm with a rate of [address] changes. Cardiac Echo Impression Echocardiogram Report Study Date: 02/18/2017 Interpretation Summary Left ventricular wall thickness is at the upper limits of normal. Proximal septal thickening is noted. The ejection fraction is estimated to be 60-65%. There is systolic anterior motion of the mitral valve. There is no significant valvular heart disease. Electronically signed by: Saw Campos on Reading Physician:02/21/2017 08:49 AM Other Diagnostics Cardiac cath performed 07/18/2017 Per my conversation with Dr. Ferguson: No culprit lesions were identified that would explain the patient's chest pain. Previous stent placed in December remains patent. Dr. Ferguson recommend stopping heparin and ordering an echo for tomorrow. Brief History Yoel Bae is a 62-year-old male with past medical history significant for CT status post RCA drug-eluting stent in December 2016, occluded SFA, hypertension, and tobacco use who presented to [facility] with palpitations and chest discomfort. He was subsequently transferred to our facility due to a reported elevated troponin and possible need for a stress test although in review of his records from [place] troponins seem to be within normal limits. As noted above he does have significant cardiac history and Dr. Campos did attempt percutaneous intervention of the totally occluded SFA but was unsuccessful in May and the patient has been referred to [place]. The symptoms he experienced today began at approximately 1600 and came on gradually. Patient describes pain as a pressure located in his left chest that does not radiate, worsen with breathing, or palpation. He denied any associated diaphoresis, nausea, vomiting, lightheadedness, or dizziness with the episode. Pain significantly improved with nitroglycerin 2. On presentation to our facility the patient's pain is negligible but he still has his nitroglycerin patch in place. Of note patient was recently hospitalized at [facility] approximately 7-10 days ago at which time he was placed on diltiazem and Eliqis. Patient denies history of atrial fibrillation. Initial vitals were temperature 37.5, pulse 65, respiratory rate 20, blood pressure 149/68, saturating 90% on room air. Labs at [place] were largely unremarkable. It does appear that he has some chronic kidney disease. Unclear if there is an acute component as I do not know his last baseline. As mentioned above troponin I 2 at [place] [facility] were 0.14 and 0.07. Repeat labs at our facility again show some chronic kidney disease along with an elevated troponin T of 0.056. Hospital Course Yoel Bae is a 62-year-old male with past medical history significant for CT status post RCA drug-eluting stent in December 2016, occluded SFA, hypertension, and tobacco use who presented to [facility] with palpitations and chest discomfort. He was subsequently transferred to our facility due to elevated troponin. NSTEMI, present on admission, stable - No new ECG findings. Old inferior infarct. - Troponin T on presentation to [facility] 0.056. Now 0.024. - Lipid panel pending. - Supplemental oxygen as needed. - Clopidogrel 75 mg daily. - Sublingual nitroglycerin and morphine as needed. - Beta Bean given at [facility]. - Lisinopril 2.5 mg given and continued daily. - Atorvastatin 40 mg daily - Cath 07/18/2017 showed no focal stenoses - Discontinued heparin drip - Echo ordered for a.m. Coronary artery disease status post RCA drug-eluting stent placement in December 2016, present on admission, chronic. - Stent is still patent as identified by cath 07/18/2017 - On dual anti-platelet therapy with Clopidogrel Eliquis. 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 - Continue atorvastatin 40 mg daily. Occluded SFA, present on admission, chronic. - Dr. Campos was unable to stent percutaneously. Referral to [facility]. - Posterior tibialis and dorsalis pedis 2/4 bilaterally Hypertension, present on admission, chronic. - Home regimen includes: Amlodipine 10 mg daily Lisinopril 5 mg daily Metoprolol tartrate 25 mg BID Possible atrial fibrillation, patient on diltiazem and makes mention of palpitations but is not sure of a diagnosis of atrial fibrillation. - EKG and telemetry reveal NSR. - Home regimen includes diltiazem ER 120 mg daily which has been continued. - Continue to monitor and obtain outside records. PRN Medications - Acetaminophen as needed for mild pain/fever/headache - Bowel regimen as needed - Antiemetic as needed Patient is admitted under inpatient status with expected length of stay greater than 2 midnights due to severity of presenting symptoms, risk of adverse event, and complexity of treatment plan. Exam Vital Signs (Last) Date Time Temp Pulse Resp B/P Pulse Ox O2 Delivery O2 Flow Rate FiO2 07/19/17 12:17 36.7 64 16 134/68 97 Room Air Test 07/18/17 00:54 07/18/17 01:09 07/18/17 03:50 07/18/17 08:00 Prothrombin Time 9.4sec (8.1-12.5) Prothromb Time International Ratio 0.88ratio Hemoglobin A1c 6.2% (4.8-5.6) Magnesium Level 1.8mg/dL (1.6-2.6) Total Bilirubin 0.2mg/dL (0.0-1.2) Aspartate Amino Transf (AST/SGOT) 24U/L (0-50) Alanine Aminotransferase (ALT/SGPT) 37U/L (0-44) Alkaline Phosphatase 69U/L (25-160) Total Protein 6.7g/dL (6.4-8.4) Albumin 3.9g/dL (3.4-5.0) Thyroid Stimulating Hormone (TSH) 2.010uIU/mL (0.450-4.500) Hold [place] Top Tube Received (Received) Urine Color Yellow (YELLOW) Urine Appearance Clear (CLEAR,HAZY) Urine pH 6.0 (5.0-8.0) Urine Specific [place] 1.015 (1.003-1.035) Urine Protein Negativemg/dL (NEG,TRACE) Urine Glucose (UA) Negativemg/dL (NEGATIVE) Urine Ketones Negativemg/dL (NEGATIVE) Urine Occult Blood Negative (NEGATIVE) Urine Nitrite Negative (NEGATIVE) Urine Bilirubin Negative (NEGATIVE) Urine Urobilinogen Normalmg/dL (NORMAL) Urine Leukocyte Esterase Negative (NEGATIVE) Urine RBC 0-2/hpf (0-2) Urine WBC 0-5/hpf (0-5) Urine Epithelial Cells Occasional/hpf (NONE-MOD) Urine Crystals None seen (NONE SEEN) Urine Bacteria None/hpf (NONE-FEW) Urine Hyaline Casts None/lpf (NONE) Urine Granular Casts None seen (NONE SEEN) Urine Waxy Casts None seen (NONE SEEN) Urine Red Blood Cell Casts None seen (NONE SEEN) Urine White Blood Cell Casts None seen (NONE SEEN) Urine Mucus None seen (None Seen) Urine Trichomonas None seen (NONE SEEN) Urine Yeast None (NONE SEEN) Urinalysis Comment None Urine Culture Reflexed Not indicated Total Creatine Kinase 132U/L (21-232) Creatine Kinase MB 1.7ng/mL (0.0-10.4) Creatine Kinase MB % % (0.0-5.0) Test 07/18/17 11:23 07/19/17 03:58 Troponin T 0.024ug/L (0.0-0.011) White Blood Count 7.4th/mm3 (3.8-10.1) Red Blood Count 4.12mil/mm3 (4.40-5.80) Hemoglobin 13.0g/dL (13.8-17.2) Hematocrit 38.1% (41.0-50.0) Mean Corpuscular Volume 92.5fL (81-100) Mean Corpuscular Hemoglobin 31.6pg (27.0-35.0) Mean Corpuscular Hemoglobin Concent 34.1% (32.0-37.0) Red Cell Distribution Width 13.7% (12.3-15.4) Platelet Count 168bil/L (150-400) Neutrophils (%) (Auto) 65.8% (40-74) Lymphocytes (%) (Auto) 18.6% (14-46) Monocytes (%) (Auto) 12.1% (4-12) Eosinophils (%) (Auto) 3.0% (0-5) Basophils (%) (Auto) 0.1% (0-3) Activated Partial Thromboplast Time 27.0sec (22.8-33.0) Sodium Level 139mEq/L (134-144) Potassium Level 4.4mEq/L (3.5-5.2) Chloride Level 104mEq/L (97-108) Carbon Dioxide Level 22mmol/L (18-29) Blood Urea Nitrogen 25mg/dL (8-27) Creatinine 1.22mg/dL (0.76-1.27) Estimat Glomerular Filtration Rate 64mL/min (>59) Glucose Level 89mg/dL (60-99) Calcium Level 8.7mg/dL (8.5-10.1) Triglycerides Level 152mg/dL (0-149) Cholesterol Level 124mg/dL (100-199) LDL Cholesterol, Calculated 73.600mg/dL (0-99) VLDL Cholesterol 30.400mg/dL HDL Cholesterol 20mg/dL (>39) Cholesterol/HDL Ratio 6.20 (0.0-4.4) Discharge Medications Discharge Medications Amlodipine (Amlodipine) 10 Mg Tablet 10 MG PO DAILY (Reported) Apixaban (Eliquis) 5 Mg Tablet 5 MG PO BID (Reported) Atorvastatin (Lipitor) 40 Mg Tablet 40 MG PO DAILY (Reported) Clopidogrel Bisulfate (Plavix) 75 Mg Tablet 75 MG PO DAILY (Reported) Diltiazem ER (Cartia XT) 120 Mg Cap.er.24h 120 MG PO DAILY (Reported) Lisinopril (Lisinopril) 5 Mg Tablet 2.5 MG PO DAILY (Reported) Metoprolol Tartrate (Metoprolol Tartrate) 50 Mg Tablet 25 MG PO BID (Reported) Nitroglycerin SL (Nitrostat) 0.4 Mg Tab.subl 0.4 MG SL Q5MIN (Reported) Pantoprazole DR (Pantoprazole DR) 40 Mg Tablet.dr 40 MG PO DAILY (Reported) As needed Hydrochlorothiazide (Hydrochlorothiazide) 25 Mg Tablet 25 MG PO DAILY PRN PRN SBP>130 (Reported) Gonzales Faith DO Jul 19, 2017 13:33
--- NOTE | 2017-07-19 13:41 | PCM.DC.MED ---
Discharge Summary Date of Service Jul 19, 2017 Dates of Hospitalization Date of Hospital Admission Jul 17, 2017 at 23:07 Date of Discharge: Jul 19, 2017 Providers: Admitting Physician: Yael Vigil DO Primary Care Physician: Arden Negro MD Attending Physician: Melba Patel DO Diagnosis at Time of Discharge Diagnosis at Time of Discharge Non-cardiac chest pain Consultations Cardiology (Dr. Bhatti and Dr. Ferguson) Procedures ECG 12 Lead EKG performed 07/18/2017 during the episode of chest pain showed a normal sinus rhythm with a rate of [address] changes. Cardiac Echo Impression Summary of Echo Performed 07/19/2017 A contrast injection of Definity was performed to improve assessment of LV function. The study quality was technically difficult. The ejection fraction is estimated to be 65-70%. Previously reported NICOLE is not seen. There is no significant valvular heart disease. Electronically signed by: Saw Campos on Reading Physician:07/19/2017 01:20 PM Other Diagnostics Cardiac cath performed 07/18/2017 Per my conversation with Dr. Ferguson: No culprit lesions were identified that would explain the patient's chest pain. Previous stent placed in December remains patent. Dr. Ferguson recommend stopping heparin and ordering an echo for tomorrow. Brief History Yoel Bae is a 62-year-old male with past medical history significant for an RCA drug-eluting stent placed in December 2016, occluded SFA, hypertension, and tobacco use who presented to [facility] with palpitations and chest discomfort. He was subsequently transferred to our facility due to an elevated troponin. Patient described the pain as a pressure located in his left chest that does not radiate or worsen with breathing or palpation. He denied any associated diaphoresis, nausea, vomiting, lightheadedness, or dizziness with the episode. Hospital Course Mr Bae's was admitted for chest pain. His troponin was elevated on admission and trended down during his 3 day stay. The patient was continuously monitored on telemetry but without significant events. He had a cardiac cath which showed no focal stenosis and no new stenting was indicated and his previous stent was found to still be patent. He also had an echo which showed a normal ejection fraction, and no significant valvular dysfunction or wall motion abnormalities. Per our Metal Drill Press Operator, Dr. Ferguson, his chest pain is non- cardiac in nature. Mr Bae did have an episode of afib in the mid 100's the night previous to discharge while he was sleeping that resolved spontaneously. It is recommended that he continue Eliquis and Plavix to protect against his stent from clotting and rethrombosis embolic stroke. The patient did have a bout of sciatica while admitted however the patient responded well to osteopathic manipulative treatment. The patient is being discharged home in stable condition See below for more detailed problem list. NSTEMI, present on admission, stable - No new ECG findings. Old inferior infarct. - Troponin T on presentation to [facility] 0.056. Now 0.024. - Lipid panel pending. - Supplemental oxygen as needed. - Clopidogrel 75 mg daily. - Sublingual nitroglycerin and morphine as needed. - Beta Bean given at [facility]. - Lisinopril 2.5 mg given and continued daily. - Atorvastatin 40 mg daily - Cath 07/18/2017 showed no focal stenoses - Discontinued heparin drip - Echo ordered for a.m. Coronary artery disease status post RCA drug-eluting stent placement in December 2016, present on admission, chronic. - Stent is still patent as identified by cath 07/18/2017 - On dual anti-platelet therapy with Clopidogrel Eliquis. 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 - Continue atorvastatin 40 mg daily. Occluded SFA, present on admission, chronic. - Dr. Campos was unable to stent percutaneously. Referral to [facility]. - Posterior tibialis and dorsalis pedis 2/4 bilaterally Hypertension, present on admission, chronic. - Home regimen includes: Amlodipine 10 mg daily Lisinopril 5 mg daily Metoprolol tartrate 25 mg BID Possible atrial fibrillation, patient on diltiazem and makes mention of palpitations but is not sure of a diagnosis of atrial fibrillation. - EKG and telemetry reveal NSR. - Home regimen includes diltiazem ER 120 mg daily which has been continued. - Continue to monitor and obtain outside records. PRN Medications - Acetaminophen as needed for mild pain/fever/headache - Bowel regimen as needed - Antiemetic as needed Patient is admitted under inpatient status with expected length of stay greater than 2 midnights due to severity of presenting symptoms, risk of adverse event, and complexity of treatment plan. Exam Vital Signs (Last) Date Time Temp Pulse Resp B/P Pulse Ox O2 Delivery O2 Flow Rate FiO2 07/19/17 12:17 36.7 64 16 134/68 97 Room Air Exam Physical Exam: GEN: Patient was awake, alert, responding appropriately to questions HEENT: Pupils equal round and reactive to light, extraocular eye muscles intact , Neck soft supple, trachea midline, nomocephalic/atraumatic CV: +S1/S2, regular rate and rhythm, positive systolic murmur auscultated Respiratory: CTAB, no wheezes, rales, rhonchi GI: +bowel sounds x4, soft, compressible, nontender to palpation EXT: no clubbing, cyanosis, edema Neuro: Cranial nerves II-XII grossly intact Psych: mood and affect were appropriate Test 07/18/17 00:54 07/18/17 01:09 07/18/17 03:50 07/18/17 08:00 Prothrombin Time 9.4sec (8.1-12.5) Prothromb Time International Ratio 0.88ratio Hemoglobin A1c 6.2% (4.8-5.6) Magnesium Level 1.8mg/dL (1.6-2.6) Total Bilirubin 0.2mg/dL (0.0-1.2) Aspartate Amino Transf (AST/SGOT) 24U/L (0-50) Alanine Aminotransferase (ALT/SGPT) 37U/L (0-44) Alkaline Phosphatase 69U/L (25-160) Total Protein 6.7g/dL (6.4-8.4) Albumin 3.9g/dL (3.4-5.0) Thyroid Stimulating Hormone (TSH) 2.010uIU/mL (0.450-4.500) Hold [place] Top Tube Received (Received) Urine Color Yellow (YELLOW) Urine Appearance Clear (CLEAR,HAZY) Urine pH 6.0 (5.0-8.0) Urine Specific [place] 1.015 (1.003-1.035) Urine Protein Negativemg/dL (NEG,TRACE) Urine Glucose (UA) Negativemg/dL (NEGATIVE) Urine Ketones Negativemg/dL (NEGATIVE) Urine Occult Blood Negative (NEGATIVE) Urine Nitrite Negative (NEGATIVE) Urine Bilirubin Negative (NEGATIVE) Urine Urobilinogen Normalmg/dL (NORMAL) Urine Leukocyte Esterase Negative (NEGATIVE) Urine RBC 0-2/hpf (0-2) Urine WBC 0-5/hpf (0-5) Urine Epithelial Cells Occasional/hpf (NONE-MOD) Urine Crystals None seen (NONE SEEN) Urine Bacteria None/hpf (NONE-FEW) Urine Hyaline Casts None/lpf (NONE) Urine Granular Casts None seen (NONE SEEN) Urine Waxy Casts None seen (NONE SEEN) Urine Red Blood Cell Casts None seen (NONE SEEN) Urine White Blood Cell Casts None seen (NONE SEEN) Urine Mucus None seen (None Seen) Urine Trichomonas None seen (NONE SEEN) Urine Yeast None (NONE SEEN) Urinalysis Comment None Urine Culture Reflexed Not indicated Total Creatine Kinase 132U/L (21-232) Creatine Kinase MB 1.7ng/mL (0.0-10.4) Creatine Kinase MB % % (0.0-5.0) Test 07/18/17 11:23 07/19/17 03:58 Troponin T 0.024ug/L (0.0-0.011) White Blood Count 7.4th/mm3 (3.8-10.1) Red Blood Count 4.12mil/mm3 (4.40-5.80) Hemoglobin 13.0g/dL (13.8-17.2) Hematocrit 38.1% (41.0-50.0) Mean Corpuscular Volume 92.5fL (81-100) Mean Corpuscular Hemoglobin 31.6pg (27.0-35.0) Mean Corpuscular Hemoglobin Concent 34.1% (32.0-37.0) Red Cell Distribution Width 13.7% (12.3-15.4) Platelet Count 168bil/L (150-400) Neutrophils (%) (Auto) 65.8% (40-74) Lymphocytes (%) (Auto) 18.6% (14-46) Monocytes (%) (Auto) 12.1% (4-12) Eosinophils (%) (Auto) 3.0% (0-5) Basophils (%) (Auto) 0.1% (0-3) Activated Partial Thromboplast Time 27.0sec (22.8-33.0) Sodium Level 139mEq/L (134-144) Potassium Level 4.4mEq/L (3.5-5.2) Chloride Level 104mEq/L (97-108) Carbon Dioxide Level 22mmol/L (18-29) Blood Urea Nitrogen 25mg/dL (8-27) Creatinine 1.22mg/dL (0.76-1.27) Estimat Glomerular Filtration Rate 64mL/min (>59) Glucose Level 89mg/dL (60-99) Calcium Level 8.7mg/dL (8.5-10.1) Triglycerides Level 152mg/dL (0-149) Cholesterol Level 124mg/dL (100-199) LDL Cholesterol, Calculated 73.600mg/dL (0-99) VLDL Cholesterol 30.400mg/dL HDL Cholesterol 20mg/dL (>39) Cholesterol/HDL Ratio 6.20 (0.0-4.4) Discharge Medications Discharge Medications Amlodipine (Amlodipine) 10 Mg Tablet 10 MG PO DAILY (Reported) Apixaban (Eliquis) 5 Mg Tablet 5 MG PO BID (Reported) Atorvastatin (Lipitor) 40 Mg Tablet 40 MG PO DAILY (Reported) Clopidogrel Bisulfate (Plavix) 75 Mg Tablet 75 MG PO DAILY (Reported) Diltiazem ER (Cartia XT) 120 Mg Cap.er.24h 120 MG PO DAILY (Reported) Lisinopril (Lisinopril) 5 Mg Tablet 2.5 MG PO DAILY (Reported) Metoprolol Tartrate (Metoprolol Tartrate) 50 Mg Tablet 25 MG PO BID (Reported) Nitroglycerin SL (Nitrostat) 0.4 Mg Tab.subl 0.4 MG SL Q5MIN (Reported) Pantoprazole DR (Pantoprazole DR) 40 Mg Tablet.dr 40 MG PO DAILY (Reported) As needed Hydrochlorothiazide (Hydrochlorothiazide) 25 Mg Tablet 25 MG PO DAILY PRN PRN SBP>130 (Reported) Followup Plan Disposition: Home Discharge Diet: Heart Healthy Discharge Activity: Limited until seen by PCP Follow-up Provider: Arden Negro MD Follow-up with PCP in: 1 week (if an appointment has not been made please call to schedule an appointment) Time spent Greater than 35 minutes Attending Statement The patient was seen and examined together with Dr. Faith on 07/19/17 and I have added additional information to the note above. copies to: Arden Negro MD, Aaron C DO Jul 19, 2017 13:41 Melba Patel DO Jul 19, 2017 15:48
--- NOTE | 2017-07-19 13:56 | PCM.DIMED ---
Gonzales Faith DO 07/19/17 1355: Discharge Instructions Date of Service Jul 19, 2017 Dates of Hospitalization Jul 17, 2017 at 23:07 Discharge Diagnosis Discharge Diagnosis Non-cardiac chest pain Medication Instructions Additional med instructions Continue to take all of your regularly prescribed home medications, including Plavix and Eliquis. Test Results Test Results The test that we did on your heart did not show any obvious source of your chest pain. It could be muscle or skeletal pain, or possibly acid reflux. Diet Discharge Diet: Heart Healthy Activity Discharge Activity: Limited until seen by PCP Call your provider Call your provider for: Fever or Chills, Shortness of breath, Bleeding, Chest pain, Vomitting, Excessive diarrhea, Weakness (unilateral) Patient Instructions Patient Instructions Please follow up with your primary doctor in 1-2 weeks. Continue to take your Plavix and Eliquis and other home meds as prescribed. Please do not hesitate to go to the ER if you have any worsening chest pain, dizziness, or shortness of breath. Follow-up Provider: Arden Negro MD Follow-up with PCP in: 1 week Melba Patel DO 07/19/17 1526: Discharge Instructions Attending's Statement The patient was seen and examined together with Dr. Faith on 07/19/17 and I agree with the history, exam and plan as outlined in the note above. Gonzales Faith DO Jul 19, 2017 13:55 Melba Patel DO Jul 19, 2017 15:26
--- NOTE | 2017-07-19 15:08 | NUR ---
Discharge Pt discharged to home with transportation by his friend. Pt's IV's dc'd intact. Telemetry removed and tech notified. Pt discharge instructions and follow up appointments were reviewed. All pt's questions were answered and pt voiced understanding. Pt's belongings were gathered for transport home with pt. Pt was escorted to his friend's vehicle by RN.
--- NOTE | 2017-07-19 16:38 | PROG NOTE ---
[address] [address] PROGRESS NOTE PATIENT: HEAVEN LEONARDO : 1955 MR#: [id number] ADMIT: 07/17/2017 JOB ID: [id number] CARDIOLOGY CONSULTATION PROGRESS NOTE--FOLLOW UP INPATIENT VISIT: DATE OF EVALUATION: July 19 CONSULTING PHYSICIAN: Cardiology--Anthony Ferguson M.D. PROBLEMS: 1. Chest pain: a. Consider acute coronary syndrome (ACS). b. Recent onset chest pain with tachy palpitations; and then later also with exertion. c. ECG with inferolateral T-wave inversion. d. Troponin slightly elevated 0.05 and down trending 0.024. 2. Coronary artery disease (CAD): a. PCI with stent of proximal RCA December,--Xience TIFFANY 3.0 x 23 mm. c. Single-Vessel CAD (Proximal RCA). HOSPITAL COURSE AND INTERIM PROGRESS: Hospital Day Three. I saw this 62-year-old man on Cardiology rounds today, Wednesday, July 19, 2017, in his room on the PCU unit. He had catheterization yesterday. In summary he was admitted the night before last in transfer from the emergency department at [facility] where he presented with bouts of exertional chest pressure that were thought to be typical of ischemia. He had also been to [place] emergency department five days previously with chest discomfort that occurred in the setting of new onset tachy palpitations. He is said to have been found to have atrial fibrillation. Aspirin was stopped. Eliquis was started along with continuing his Plavix; and diltiazem was started. After admission he was scheduled for stress perfusion scan. However, this was deferred because he had an episode of chest discomfort on just a small bit of walking in the hallway. We pursued urgent diagnostic coronary angiogram yesterday. His left coronary artery remains intact except for atherosclerotic plaquing. The right coronary artery has diffuse moderate atherosclerotic plaquing; but the proximal RCA stent was patent, and appeared satisfactory. I did not identify any lesions that seem suspicious enough for further testing (FFR; or IVUS); or for revascularization. Despite the features of his presentation concerning for acute CAD, he has had no further chest discomfort. He recuperated well after the catheterization including no bleeding at the access site. He was reambulated today including walking four circuits around the [place] hallways without difficulty or chest pain. He anticipates going home today. PHYSICAL EXAMINATION: He appears comfortable and stable in bed. Vital signs stable with blood pressure 134/68, heart rate 64, regular. Extremities: Right lower extremity: Fully intact at the cath site with minimal ecchymosis. No hematoma, pulsatile mass or bruit; and intact peripheral RLE pulse palpable at the dorsalis pedis and posterior tibial. Review of telemetry indicates sinus rhythm; but I see a note that he may have had a brief episode of atrial fibrillation overnight. LABORATORY: Glad to see his creatinine normalized from 1.43 to 1.22 after catheterization with only a small dose of contrast; and radha cath hydration. Note lipid panel shows cholesterol total 124 with LDL 73, HDL very low 20. TSH slightly elevated 6.2. Echocardiogram: He had an echo this morning to look for new wall motion defect; and to pin down the question of "NICLOE" that was raised on the prior echo (I saw only chordal NICOLE on the images of that study). The report of the current echo indicates vigorous LV function; no wall motion defect; and no NICOLE. Valsalva was done during that study without provoking LVOT obstruction. ASSESSMENT: I discussed the findings, impressions and management considerations with him (no family present); and with the Hospitalist team (including Dr. Faith; and Dr. Patel); and with Cardiology(Dr. Campos) including: Chest pain: He had chest pain consistent with ischemia in the setting of known CAD with TIFFANY six months ago, raising a question of progressive disease or restenosis. The initial onset with tachy palpitations and newfound atrial fibrillation suggested that may be the association. However, he also had exertional chest discomfort. We did not find any coronary lesions to revascularize at the current time. Consistent with that data his chest discomfort seems to have cleared. I explained to him that he might have non coronary chest discomfort. or noncardiac chest discomfort. This may take further observation to elucidate and treat. There is always the background consideration that his chest discomfort could be cardiac or it could become cardiac. RECOMMENDATIONS: 1. Anticipate stable for discharge today. 2. OMT--Continue guideline directed optimal medical therapy for his underlying CAD risk factors; and for CAD including hold aspirin; continue Plavix at least one year from stent; and resume Eliquis. Your plan for further management of his chest discomfort if it recurs; including close early follow-up by PCP and Cardiology. I discussed the critical importance of cigarette cessation again with him. Please arrange Cardiology follow-up with Dr. Campos who knows him. 3. Peripheral vascular disease--His overriding chief complaint at the present time is severe bilateral claudication. He has been referred for surgical consideration of left ostial SFA occlusion. Office visit in Cardiology may be very helpful to expedite that referral which has been pending. 4. He knows to seek early follow-up if recurrent symptoms. KIT
== END 2017-07-19 14:59 | disposition home or self-care (01) | DRG 287 ==
LOC: PCC 23:07
PROVIDERS: ADMIT Internal Medicine; ATTEND Neuromusculoskeletal Medicine & OMM
PROC: 4A023N7 Measurement of Cardiac Sampling and Pressure, Left Heart, Percutaneous Approach (ICD-10-PCS; principal; 2017-07-18)
PROC: B2111ZZ Fluoroscopy of Multiple Coronary Arteries using Low Osmolar Contrast (ICD-10-PCS; 2017-07-18)
DX: R07.89 Other chest pain (principal); Z95.5 Presence of coronary angioplasty implant and graft; F17.210 Nicotine dependence, cigarettes, uncomplicated; I25.10 Atherosclerotic heart disease of native coronary artery without angina pectoris; I48.91 Unspecified atrial fibrillation; Z79.02 Long term (current) use of antithrombotics/antiplatelets